=== PATIENT | female | born 2000 | race Caucasian/White ===

== ENCOUNTER 2020-12-14 06:56 | Emergency (ER) | payer MEDICAID ==
[~2020-12-14] VITALS: Ht 152.4 cm; Wt 64.5 kg
[2020-12-14] MEDS ORDERED: SODIUM CHLORIDE FLUSH 10ML SYR IVF ONE (07:30)
[2020-12-14] MEDS ORDERED: SODIUM CHLORIDE 0.9% 1,000ML IVBOLUS ONE (07:30)
[2020-12-14] MEDS ORDERED: MAALOX/HYOSCYAMINE/LIDOCAINE 45 ML BTL PO ONE (07:30)
[2020-12-14] MEDS ORDERED: LORazepam 2 MG/ML, 1ML IV ONE (07:30)
[2020-12-14] MEDS ORDERED: MAALOX/HYOSCYAMINE/LIDOCAINE 45 ML BTL ONE (07:40)
[2020-12-14] MEDS ORDERED: LORazepam 2 MG/ML, 1ML ONE (07:41)
[2020-12-14 08:30] LABS: BASOPHILS % (AUTO) 1 % (0-1); EOSINOPHILS % (AUTO) 0 % (1-7); LYMPHOCYTES % (AUTO) 13 % (22-44); MEAN CORPUSCULAR HEMOGLOBIN 32.3 pg (27.0-34.8); MEAN CORPUSCULAR HGB CONC 35.5 g/dL (32.4-35.8); MEAN PLATELET VOLUME 10.4 fL (7.4-10.4); MONOCYTES % (AUTO) 4 % (2-9); NEUTROPHILS % (AUTO) 83 % (42-75); PLATELET COUNT 221 x10^3/uL (130-400); RED BLOOD COUNT 4.88 x10^6/uL (3.82-5.3); RED CELL DISTRIBUTION WIDTH 12.6 % (9.6-15.2)
[2020-12-14 08:31] LABS: MD NO
[2020-12-14 08:37] LABS: ALBUMIN 4.8 g/dL (3.4-5.0); ANION GAP 8 mmol/L (5-15); CALCIUM 9.5 mg/dL (8.5-10.1); CHLORIDE 104 mmol/L (98-107)
[2020-12-14 08:41] LABS: ALANINE AMINOTRANSFERASE 22 U/L (12-78); ALKALINE PHOSPHATASE 56 U/L (45-117); CREATININE 0.86 mg/dL (0.55-1.02)
[2020-12-14 08:42] LABS: BILIRUBIN,TOTAL 1.3 mg/dL (0.2-1.0); TOTAL PROTEIN 8.5 g/dL (6.4-8.2)
--- NOTE | 2020-12-14 08:54 | NUR ---
US FINISHED IN ROOM
[2020-12-14 09:00] VITALS: BP 113/74
== END 2020-12-14 09:47 | disposition home or self-care (01) ==
LOC: ED 07:51
DX: K29.70 Gastritis, unspecified, without bleeding (principal); G89.29 Other chronic pain; R10.13 Epigastric pain; E86.0 Dehydration; R11.2 Nausea with vomiting, unspecified; K59.00 Constipation, unspecified
CPT/HCPCS: 36415; 74021; 76700; 80053; 83690; 84703; 85025; 96361; 96374; 99285; J2060; J7030